=== PATIENT | male | born 1990 | race Hispanic/Latino ===

== ENCOUNTER → 2023-09-20 | Day surgery (SDC) | payer OTHER ==
[~2023-09-20] MED LIST: ADZENYS XR-OD18.8 MG PO; FENTANYL CITRATE/PF 100MCG/2 ML INJ ONE; LACTATED RINGER'S 1,000 ML ONE; LIDOCAINE HCL 2% LOCAL INJ 5 ML SDV VIAL INJ ONE; METOCLOPRAMIDE HCL 10 MG/2ML VIAL ONE; MIDAZOLAM HCL 2 MG/2 ML VIAL ONE; PROPOFOL IV EMULSION 10 MG/ML 20 ML VIAL ONE; PROPOFOL IV EMULSION 10 MG/ML 50 ML VIAL IV ONE
[2023-09-20 16:31] VITALS: TEMP 97
[2023-09-20 17:15] VITALS: BP 114/74; PULSE 74; RESP 17; O2SAT 97
== END | disposition home or self-care (01) ==
LOC: OR 14:17
PROVIDERS: ATTEND Internal Medicine Gastroenterology
DX: K29.00 Acute gastritis without bleeding (principal); K29.50 Unspecified chronic gastritis without bleeding; K20.90 Esophagitis, unspecified without bleeding; K44.9 Diaphragmatic hernia without obstruction or gangrene; K21.9 Gastro-esophageal reflux disease without esophagitis; K62.5 Hemorrhage of anus and rectum; K59.09 Other constipation; R19.5 Other fecal abnormalities; K64.8 Other hemorrhoids; Z71.3 Dietary counseling and surveillance; E73.9 Lactose intolerance, unspecified; E66.01 Morbid (severe) obesity due to excess calories; I69.898 Other sequelae of other cerebrovascular disease; H53.8 Other visual disturbances; R42 Dizziness and giddiness; F17.210 Nicotine dependence, cigarettes, uncomplicated; Z71.6 Tobacco abuse counseling; Z79.899 Other long term (current) drug therapy; Z68.26 Body mass index [BMI] 26.0-26.9, adult
CPT/HCPCS: 43239; 45378; C9113; J2001; J2250; J2704 ×2; J2765; J3010; J7121

== ENCOUNTER → 2024-08-07 | Outpatient (REF) | payer OTHER ==
[~2024-08-07] MED LIST changes: -FENTANYL CITRATE/PF 100MCG/2 ML INJ ONE; -LACTATED RINGER'S 1,000 ML ONE; -LIDOCAINE HCL 2% LOCAL INJ 5 ML SDV VIAL INJ ONE; -METOCLOPRAMIDE HCL 10 MG/2ML VIAL ONE; -MIDAZOLAM HCL 2 MG/2 ML VIAL ONE; -PROPOFOL IV EMULSION 10 MG/ML 20 ML VIAL ONE; -PROPOFOL IV EMULSION 10 MG/ML 50 ML VIAL IV ONE
== END ==
LOC: US 07:52
PROVIDERS: ATTEND Nurse Practitioner
DX: R14.0 Abdominal distension (gaseous) (principal); K29.60 Other gastritis without bleeding; K76.0 Fatty (change of) liver, not elsewhere classified
CPT/HCPCS: 76700